=== PATIENT | male | born 1940 | race Caucasian/White ===

== ENCOUNTER 2017-12-03 19:06 | Inpatient (IN) | payer MEDICARE, MEDICAID ==
[~2017-12-03] VITALS: Ht 172.7 cm; Wt 83.0 kg
[~2017-12-03 19:06] MED LIST: AMIO200T57 PO; ASPI-1265 PO; ATEN-169 PO; DEXL60CA3 PO; DIAZ10TA PO; ENOX80SY7 SQ; FURO20TA4; HYDR-565 PO; LORA10CA9; PRED5TAB PO; PROM25TA14; SPIR25TA5; TICA90TA PO; WARF3TAB PO
[2017-12-03] MEDS ORDERED: normal saline 1000ML IV soln IV ONE (19:15)
[2017-12-03 19:33] LABS: BASOPHILS # (AUTO) 0.1 X10'3 (0-0.2); BASOPHILS % (AUTO) 1.2 % (0-1); EOSINOPHILS # (AUTO) 0.1 X10'3 (0-0.9); EOSINOPHILS % (AUTO) 0.9 % (0-6); HEMATOCRIT 39.2 % (42.0-52.0); HEMOGLOBIN 13.3 g/dl (14.0-17.9); LYMPHOCYTES # (AUTO) 1.1 X10'3 (1.1-4.8); LYMPHOCYTES % (AUTO) 12.3 % (21-51); MEAN CORPUSCULAR HEMOGLOBIN 28.7 PG (27.0-31.0); MEAN CORPUSCULAR HGB CONC 33.8 % (33.0-36.5); MEAN PLATELET VOLUME 9.3 FL (7.4-10.4); MONOCYTES # (AUTO) 0.6 X10'3 (0-0.9); MONOCYTES % (AUTO) 7.1 % (2-12); NEUTROPHILS # (AUTO) 6.9 X10'3 (1.8-7.7); NEUTROPHILS % (AUTO) 78.5 % (42-75); PLATELET COUNT 208 X10'3 (140-440); RED BLOOD COUNT 4.61 X10'6 (4.70-6.10); RED CELL DISTRIBUTION WIDTH 15.6 % (11.5-14.5); WHITE BLOOD COUNT 8.8 X10'3 (4.5-11.0)
[2017-12-03 19:46] LABS: INR 1.8 INR; PARTIAL THROMBOPLASTIN TIME 47 SECONDS (22-32); PROTHROMBIN TIME 18.4 SECONDS (9.0-12.0)
[2017-12-03 19:47] LABS: ALANINE AMINOTRANSFERASE 23 U/L (12-78); ALBUMIN 2.8 G/DL (3.4-5.0); ALBUMIN/GLOBULIN RATIO 0.6 (1.1-1.5); ALKALINE PHOSPHATASE 121 IU/L (46-116); ANION GAP 9 (8-16); ASPARTATE AMINO TRANSFERASE 55 U/L (10-37); BILIRUBIN,TOTAL 0.7 MG/DL (0.1-1.0); BLOOD UREA NITROGEN 17 MG/DL (7-18); BUN/CREATININE RATIO 10.6 (5.4-32.0); CALCIUM 9.1 MG/DL (8.5-10.1); CHLORIDE 102 MMOL/L (99-107); CREATININE 1.61 MG/DL (0.60-1.10); GLUCOSE 139 MG/DL (70-104); POTASSIUM 3.5 MMOL/L (3.5-5.1); SODIUM 138 MMOL/L (135-145); TOTAL CARBON DIOXIDE 26.9 MMOL/L (24-32); TOTAL PROTEIN 7.8 G/DL (6.4-8.2); eGFR 42 ML/MIN
[2017-12-03 20:12] LABS: CLARITY,URINE CLEAR (Clear); COLOR,URINE YELLOW (Yellow); GLUCOSE, URINE NEGATIVE (Neg); KETONES,URINE NEGATIVE (Neg); LEUKOCYTE ESTERASE ,URINE NEGATIVE (Neg); NITRITES, URINE NEGATIVE (Neg); PROTEIN,URINE 100 mg/dl (Neg); UROBILINOGEN,URINE 0.2 E.U/dL (0.2-1.0)
[2017-12-03 20:21] LABS: UA COLLECTION TYPE NON-SPECIFIED
[2017-12-03 20:25] LABS: BACTERIA,URINE FEW /HPF (Neg); MUCUS STRANDS FEW /LPF (Neg); SQUAMOUS EPITHELIAL CELL,UR FEW /LPF (FEW)
[2017-12-03 20:26] LABS: WBC,URINE 0-4 /HPF (0-4)
[2017-12-03 20:27] LABS: OCCULT BLOOD,URINE LARGE (Neg); RBC,URINE 0-2 /HPF (0-2)
[2017-12-03] MEDS ORDERED: ethyl chloride 103.5ml spray TP ONE (20:50)
[2017-12-03] MEDS ORDERED: mag hydrox/Alum hydrox/simeth 30ml oral suspension PO PRN (21:40)
[2017-12-03] MEDS ORDERED: acetaminophen 325mg tablet PO PRN (21:40)
[2017-12-03] MEDS ORDERED: CefTRIAXone/D5W-Rocephin 1gm 50 ML IV SCH (21:40)
[2017-12-03] MEDS ORDERED: HYDROmorphone 1 mg/ml syringe IV PRN (21:40)
[2017-12-03] MEDS ORDERED: magnesium hydroxide 30ml (MOM) UD suspension PO PRN (21:40)
[2017-12-03] MEDS ORDERED: DIAZEPAM PO PRN (21:50)
[2017-12-03] MEDS ORDERED: atenolol 50mg tablet PO PRN (21:50)
[2017-12-03 21:51] LABS: GLUCOSE,SYNOVIAL FLUID 114 MG/DL; TOTAL PROTEIN,SYNOVIAL FLUID 4.6 GM/DL
[2017-12-03] MEDS ORDERED: HYDROcodone/acetaminophen 10/325mg tab PO PRN (21:55)
[2017-12-03] MEDS ORDERED: diazepam 5mg tablet PO PRN (21:58)
[2017-12-03 22:07] LABS: APPEARANCE,SYNOVIAL FLUID CLOUDY; COLOR,SYNOVIAL FLUID RED; SYN RBC 121800 /CU MM (0); SYN WBC 36225 /CU MM (0-200); SYNOVIAL FLUID CRYSTALS QT NO CRYSTALS SEEN
[2017-12-03 23:00] VITALS: BP 135/71
[2017-12-03] MEDS: HYDROmorphone 1 mg/ml syringe IV PRN (23:23)
[2017-12-04 06:00] VITALS: BP 126/64
[2017-12-04 06:38] LABS: BASOPHILS % (AUTO) 0.4 % (0-1); EOSINOPHILS # (AUTO) 0.1 X10'3 (0-0.9); EOSINOPHILS % (AUTO) 1.6 % (0-6); HEMOGLOBIN 11.6 g/dl (14.0-17.9); LYMPHOCYTES # (AUTO) 1.5 X10'3 (1.1-4.8); LYMPHOCYTES % (AUTO) 18.6 % (21-51); MEAN CORPUSCULAR HGB CONC 34.2 % (33.0-36.5); MEAN CORPUSCULAR VOLUME 84.8 FL (78-98); MEAN PLATELET VOLUME 9.6 FL (7.4-10.4); MONOCYTES # (AUTO) 0.9 X10'3 (0-0.9); MONOCYTES % (AUTO) 10.7 % (2-12); NEUTROPHILS # (AUTO) 5.5 X10'3 (1.8-7.7); NEUTROPHILS % (AUTO) 68.7 % (42-75); PLATELET COUNT 178 X10'3 (140-440); RED BLOOD COUNT 4.02 X10'6 (4.70-6.10); RED CELL DISTRIBUTION WIDTH 15.9 % (11.5-14.5); WHITE BLOOD COUNT 8.1 X10'3 (4.5-11.0)
[2017-12-04 06:50] LABS: ALBUMIN 2.3 G/DL (3.4-5.0); ANION GAP 8 (8-16); BLOOD UREA NITROGEN 17 MG/DL (7-18); CALCIUM 8.8 MG/DL (8.5-10.1); CHLORIDE 106 MMOL/L (99-107); CREATININE 1.55 MG/DL (0.60-1.10); GLUCOSE 130 MG/DL (70-104); INR 1.6 INR; POTASSIUM 3.5 MMOL/L (3.5-5.1); PROTHROMBIN TIME 16.6 SECONDS (9.0-12.0); SODIUM 140 MMOL/L (135-145); eGFR 44 ML/MIN
[2017-12-04] MEDS ORDERED: HYDROcodone/acetaminophen 5mg/325mg tablet PO PRN (06:52)
[2017-12-04] MEDS ORDERED: AMIO200T57 PO (07:37)
[2017-12-04] MEDS: pantoprazole 40mg Tablet.DR PO SCH (07:42)
[2017-12-04] MEDS: HYDROmorphone 1 mg/ml syringe IV PRN ×3 (07:42→17:38)
[2017-12-04] MEDS ORDERED: SODI650T29 PO (07:59)
[2017-12-04] MEDS ORDERED: amiodarone 200mg tablet PO SCH (08:00)
[2017-12-04] MEDS ORDERED: aspirin 81mg tab.chew PO SCH (08:30)
[2017-12-04 10:00] VITALS: BP 113/56
[2017-12-04] MEDS ORDERED: vancomycin/NS 1 GM ADD-VANTAGE 250 ML IV SCH ×2 (10:00)
[2017-12-04] MEDS: ticagrelor 90mg tablet PO SCH ×2 (10:24→20:44)
[2017-12-04] MEDS: amiodarone 100mg tablet PO SCH (10:24)
[2017-12-04] MEDS ORDERED: HYDROmorphone 1 mg/ml syringe IV PRN (17:05)
[2017-12-04] MEDS: naproxen 500mg tablet PO SCH (17:30)
[2017-12-04 18:00] VITALS: BP 128/59
[2017-12-04] MEDS: lactobacillus rhamnosus 10,000 MMU CELLS/CAPSULE PO SCH (20:44)
[2017-12-04 22:00] VITALS: BP 126/64
[2017-12-04] MEDS: temazepam 15mg capsule PO PRN (23:57)
[2017-12-05] MEDS: HYDROmorphone 1 mg/ml syringe IV PRN ×5 (05:45→22:32)
[2017-12-05 06:00] VITALS: BP 125/60
[2017-12-05 06:03] LABS: BASOPHILS % (AUTO) 0.4 % (0-1); EOSINOPHILS # (AUTO) 0.2 X10'3 (0-0.9); EOSINOPHILS % (AUTO) 2.4 % (0-6); HEMATOCRIT 29.4 % (42.0-52.0); HEMOGLOBIN 9.9 g/dl (14.0-17.9); LYMPHOCYTES # (AUTO) 1.3 X10'3 (1.1-4.8); MEAN CORPUSCULAR HEMOGLOBIN 28.6 PG (27.0-31.0); MEAN CORPUSCULAR HGB CONC 33.9 % (33.0-36.5); MEAN CORPUSCULAR VOLUME 84.4 FL (78-98); MEAN PLATELET VOLUME 9.1 FL (7.4-10.4); MONOCYTES # (AUTO) 0.7 X10'3 (0-0.9); MONOCYTES % (AUTO) 10.6 % (2-12); NEUTROPHILS # (AUTO) 4.1 X10'3 (1.8-7.7); NEUTROPHILS % (AUTO) 65.6 % (42-75); PLATELET COUNT 150 X10'3 (140-440); RED BLOOD COUNT 3.48 X10'6 (4.70-6.10); RED CELL DISTRIBUTION WIDTH 15.7 % (11.5-14.5); WHITE BLOOD COUNT 6.3 X10'3 (4.5-11.0)
[2017-12-05 06:13] LABS: INR 1.3 INR
[2017-12-05 06:31] LABS: ALBUMIN 1.9 G/DL (3.4-5.0); ANION GAP 11 (8-16); BLOOD UREA NITROGEN 19 MG/DL (7-18); BUN/CREATININE RATIO 12.5 (5.4-32.0); CALCIUM 8.4 MG/DL (8.5-10.1); CHLORIDE 106 MMOL/L (99-107); CREATININE 1.52 MG/DL (0.60-1.10); GLUCOSE 132 MG/DL (70-104); POTASSIUM 3.1 MMOL/L (3.5-5.1); SODIUM 142 MMOL/L (135-145); TOTAL CARBON DIOXIDE 24.6 MMOL/L (24-32); eGFR 45 ML/MIN
[2017-12-05] MEDS: naproxen 500mg tablet PO SCH (07:46)
[2017-12-05] MEDS ORDERED: potassium Cl 20 mEq SR tablet PO PRN (07:55)
[2017-12-05] MEDS ORDERED: potassium Cl 40MEQ/NS 500ml 500 ML IV PRN ×2 (07:55)
[2017-12-05] MEDS ORDERED: CefTRIAXone 2gm/D5W 50ml 50 ML IV SCH (08:00)
[2017-12-05] MEDS: methylPREDNISolone sod succ 125mg/2ml vial IV SCH (08:09)
[2017-12-05] MEDS: ticagrelor 90mg tablet PO SCH ×2 (08:09→19:44)
[2017-12-05] MEDS: potassium Cl 20 mEq SR tablet PO PRN ×3 (08:10→16:49)
[2017-12-05] MEDS: pantoprazole 40mg Tablet.DR PO SCH (08:10)
[2017-12-05] MEDS: lactobacillus rhamnosus 10,000 MMU CELLS/CAPSULE PO SCH ×2 (08:10→19:44)
[2017-12-05] MEDS: amiodarone 100mg tablet PO SCH (08:10)
[2017-12-05] MEDS ORDERED: PRED10TA23 PO (08:34)
[2017-12-05] MEDS ORDERED: vancomycin inj 1,250 MG in normal saline 250ml IV soln 250 ML IV SCH (09:00)
[2017-12-05 10:00] VITALS: BP 143/69
[2017-12-05 18:00] VITALS: BP 141/71
[2017-12-05 22:00] VITALS: BP 128/64
[2017-12-05] MEDS: temazepam 15mg capsule PO PRN (22:32)
[2017-12-06 05:39] LABS: BASOPHILS % (AUTO) 0.1 % (0-1); EOSINOPHILS % (AUTO) 0 % (0-6); HEMATOCRIT 30.8 % (42.0-52.0); HEMOGLOBIN 10.3 g/dl (14.0-17.9); LYMPHOCYTES # (AUTO) 0.7 X10'3 (1.1-4.8); LYMPHOCYTES % (AUTO) 7.8 % (21-51); MEAN CORPUSCULAR HEMOGLOBIN 28.7 PG (27.0-31.0); MEAN CORPUSCULAR HGB CONC 33.5 % (33.0-36.5); MEAN CORPUSCULAR VOLUME 85.5 FL (78-98); MEAN PLATELET VOLUME 9.9 FL (7.4-10.4); MONOCYTES # (AUTO) 0.3 X10'3 (0-0.9); MONOCYTES % (AUTO) 3.3 % (2-12); NEUTROPHILS # (AUTO) 8.5 X10'3 (1.8-7.7); NEUTROPHILS % (AUTO) 88.8 % (42-75); PLATELET COUNT 181 X10'3 (140-440); RED BLOOD COUNT 3.61 X10'6 (4.70-6.10); RED CELL DISTRIBUTION WIDTH 15.8 % (11.5-14.5); WHITE BLOOD COUNT 9.5 X10'3 (4.5-11.0)
[2017-12-06 05:54] LABS: INR 1.1 INR; PROTHROMBIN TIME 11.4 SECONDS (9.0-12.0)
[2017-12-06] MEDS: HYDROmorphone 1 mg/ml syringe IV PRN ×4 (05:55→23:58)
[2017-12-06 06:13] LABS: ALBUMIN 1.9 G/DL (3.4-5.0); ANION GAP 12 (8-16); BLOOD UREA NITROGEN 22 MG/DL (7-18); BUN/CREATININE RATIO 16.3 (5.4-32.0); CALCIUM 8.7 MG/DL (8.5-10.1); CHLORIDE 107 MMOL/L (99-107); CREATININE 1.35 MG/DL (0.60-1.10); GLUCOSE 179 MG/DL (70-104); MAGNESIUM 2.1 MG/DL (1.5-2.4); POTASSIUM 4.4 MMOL/L (3.5-5.1); SODIUM 141 MMOL/L (135-145); TOTAL CARBON DIOXIDE 22.4 MMOL/L (24-32); eGFR 52 ML/MIN
[2017-12-06] MEDS: amiodarone 100mg tablet PO SCH (08:50)
[2017-12-06] MEDS: aspirin 81mg tablet.DR PO SCH (08:50)
[2017-12-06] MEDS: pantoprazole 40mg Tablet.DR PO SCH (08:56)
[2017-12-06] MEDS: lactobacillus rhamnosus 10,000 MMU CELLS/CAPSULE PO SCH ×2 (08:57→19:46)
[2017-12-06] MEDS: ticagrelor 90mg tablet PO SCH ×2 (08:57→19:46)
[2017-12-06] MEDS: methylPREDNISolone sod succ 125mg/2ml vial IV SCH (09:00)
[2017-12-06 10:14] VITALS: BP 135/76
[2017-12-06] MEDS: ondansetron/PF 4mg/2ml inj IV PRN (15:10)
[2017-12-06 18:00] VITALS: BP 133/65
[2017-12-06 22:00] VITALS: BP 138/76
[2017-12-07] MEDS: temazepam 15mg capsule PO PRN (00:02)
[2017-12-07] MEDS: HYDROmorphone 1 mg/ml syringe IV PRN ×3 (05:12→14:05)
[2017-12-07 05:34] LABS: BASOPHILS % (AUTO) 0.1 % (0-1); EOSINOPHILS # (AUTO) 0.2 X10'3 (0-0.9); EOSINOPHILS % (AUTO) 1.4 % (0-6); HEMOGLOBIN 10.6 g/dl (14.0-17.9); LYMPHOCYTES # (AUTO) 0.9 X10'3 (1.1-4.8); LYMPHOCYTES % (AUTO) 7.8 % (21-51); MEAN CORPUSCULAR HEMOGLOBIN 28.5 PG (27.0-31.0); MEAN CORPUSCULAR HGB CONC 33.3 % (33.0-36.5); MEAN CORPUSCULAR VOLUME 85.8 FL (78-98); MEAN PLATELET VOLUME 9.5 FL (7.4-10.4); MONOCYTES # (AUTO) 0.4 X10'3 (0-0.9); MONOCYTES % (AUTO) 3.2 % (2-12); NEUTROPHILS # (AUTO) 9.8 X10'3 (1.8-7.7); NEUTROPHILS % (AUTO) 87.5 % (42-75); PLATELET COUNT 211 X10'3 (140-440); RED BLOOD COUNT 3.73 X10'6 (4.70-6.10); RED CELL DISTRIBUTION WIDTH 15.7 % (11.5-14.5); WHITE BLOOD COUNT 11.2 X10'3 (4.5-11.0)
[2017-12-07 05:39] LABS: PROTHROMBIN TIME 10.7 SECONDS (9.0-12.0)
[2017-12-07 06:00] VITALS: BP 158/87
[2017-12-07 06:07] LABS: ALBUMIN 1.9 G/DL (3.4-5.0); ANION GAP 9 (8-16); BLOOD UREA NITROGEN 27 MG/DL (7-18); CALCIUM 8.4 MG/DL (8.5-10.1); CHLORIDE 108 MMOL/L (99-107); CREATININE 1.42 MG/DL (0.60-1.10); GLUCOSE 171 MG/DL (70-104); MAGNESIUM 2.7 MG/DL (1.5-2.4); POTASSIUM 4.7 MMOL/L (3.5-5.1); SODIUM 143 MMOL/L (135-145); TOTAL CARBON DIOXIDE 25.8 MMOL/L (24-32); eGFR 49 ML/MIN
[2017-12-07] MEDS: amiodarone 100mg tablet PO SCH (07:32)
[2017-12-07] MEDS: aspirin 81mg tablet.DR PO SCH (07:33)
[2017-12-07] MEDS: ticagrelor 90mg tablet PO SCH (07:33)
[2017-12-07] MEDS: pantoprazole 40mg Tablet.DR PO SCH (07:33)
[2017-12-07] MEDS: lactobacillus rhamnosus 10,000 MMU CELLS/CAPSULE PO SCH (07:34)
[2017-12-07] MEDS: methylPREDNISolone sod succ 125mg/2ml vial IV SCH (07:37)
[2017-12-07 10:00] VITALS: BP 152/84
[2017-12-07] MEDS: ondansetron/PF 4mg/2ml inj IV PRN (14:12)
[2017-12-08] MEDS ORDERED: VANCOMYCIN LEVEL IV ONE (08:30)
== END 2017-12-07 15:00 | disposition home or self-care (01) | DRG 554 ==
LOC: ER 19:07 → ED HOLD 21:40 → ORTHO 4S 23:01
PROVIDERS: ADMIT Hospitalist; ATTEND Internal Medicine
DX: M17.12 Unilateral primary osteoarthritis, left knee (principal); I25.10 Atherosclerotic heart disease of native coronary artery without angina pectoris; N18.3 Chronic kidney disease, stage 3 (moderate); D45 Polycythemia vera; I48.91 Unspecified atrial fibrillation; G43.909 Migraine, unspecified, not intractable, without status migrainosus; G89.29 Other chronic pain; M54.9 Dorsalgia, unspecified; I50.9 Heart failure, unspecified; J45.909 Unspecified asthma, uncomplicated; K21.9 Gastro-esophageal reflux disease without esophagitis; I25.2 Old myocardial infarction; Z95.1 Presence of aortocoronary bypass graft; Z95.5 Presence of coronary angioplasty implant and graft; Z88.2 Allergy status to sulfonamides; Z88.8 Allergy status to other drugs, medicaments and biological substances; Z88.1 Allergy status to other antibiotic agents; Z88.0 Allergy status to penicillin; Z91.013 Allergy to seafood; Z79.899 Other long term (current) drug therapy; Z79.01 Long term (current) use of anticoagulants; Z79.82 Long term (current) use of aspirin; Z86.711 Personal history of pulmonary embolism; Z87.891 Personal history of nicotine dependence; Z80.0 Family history of malignant neoplasm of digestive organs; Z82.49 Family history of ischemic heart disease and other diseases of the circulatory system; Z82.3 Family history of stroke
CPT/HCPCS: 36415; 73564; 80048; 80053; 81001; 82945; 83605; 83735; 84157; 84439; 84443; 85025; 85610; 85651; 85730; 86140; 87015; 87040; 87070; 89051; 89060; 93005; 93306; 97110; 97116; 97161; 97530; 99285; J0696; J1170; J2405; J2930; J3370; J7030

== ENCOUNTER 2018-10-17 03:19 | Emergency (ER) | payer MEDICARE, MEDICAID ==
[~2018-10-17] VITALS: Ht 172.7 cm; Wt 72.7 kg
[~2018-10-17 03:19] MED LIST changes: +AMIO200T40 PO; -AMIO200T57 PO; -ENOX80SY7 SQ; +HYDR-4353 PO; -HYDR-565 PO; -PRED5TAB PO; -WARF3TAB PO
[2018-10-17] MEDS ORDERED: acetaminophen 325mg tablet PO ONE (03:50)
[2018-10-17] MEDS ORDERED: benzonatate 100mg capsule PO ONE (03:50)
[2018-10-17] MEDS ORDERED: levoFLOXACIN 750MG TABLET PO ONE (03:50)
[2018-10-17] MEDS ORDERED: normal saline 1000ml 1,000 ML IV ONE (04:05)
[2018-10-17] MEDS ORDERED: CefTRIAXone 1000mg IM Kit (w/lidocaine diluent) IM ONE (04:05)
[2018-10-17 05:14] VITALS: BP 97/59
[2018-10-17 05:20] LABS: BASOPHILS # (AUTO) 0.1 X10'3 (0-0.2); EOSINOPHILS # (AUTO) 0.1 X10'3 (0-0.9); EOSINOPHILS % (AUTO) 2.3 % (0-6); HEMATOCRIT 36.5 % (42.0-52.0); HEMOGLOBIN 12.4 g/dl (14.0-17.9); LYMPHOCYTES # (AUTO) 1.1 X10'3 (1.1-4.8); LYMPHOCYTES % (AUTO) 19.6 % (21-51); MEAN CORPUSCULAR HEMOGLOBIN 28.8 PG (27.0-31.0); MEAN CORPUSCULAR VOLUME 84.7 FL (78-98); MEAN PLATELET VOLUME 9.2 FL (7.4-10.4); MONOCYTES # (AUTO) 0.6 X10'3 (0-0.9); MONOCYTES % (AUTO) 10.7 % (2-12); NEUTROPHILS # (AUTO) 3.6 X10'3 (1.8-7.7); NEUTROPHILS % (AUTO) 66.4 % (42-75); PLATELET COUNT 192 X10'3 (140-440); RED BLOOD COUNT 4.32 X10'6 (4.70-6.10); WHITE BLOOD COUNT 5.4 X10'3 (4.5-11.0)
[2018-10-17] MEDS ORDERED: CefTRIAXone/D5W-Rocephin 1gm 50 ML IV ONE (05:20)
[2018-10-17 05:25] LABS: ALANINE AMINOTRANSFERASE 26 U/L (12-78); ALBUMIN/GLOBULIN RATIO 0.8 (1.1-1.5); ALKALINE PHOSPHATASE 112 IU/L (46-116); ANION GAP 11 (8-16); ASPARTATE AMINO TRANSFERASE 11 U/L (10-37); BILIRUBIN,TOTAL 0.3 MG/DL (0.1-1.0); BLOOD UREA NITROGEN 26 MG/DL (7-18); BUN/CREATININE RATIO 13.2 (5.4-32.0); CALCIUM 8.3 MG/DL (8.5-10.1); CHLORIDE 106 MMOL/L (99-107); CREATININE 1.97 MG/DL (0.60-1.10); GLUCOSE 166 MG/DL (70-104); SODIUM 138 MMOL/L (135-145); TOTAL CARBON DIOXIDE 20.7 MMOL/L (24-32); TOTAL PROTEIN 6.8 G/DL (6.4-8.2); eGFR 33 ML/MIN
[2018-10-17 05:28] LABS: POTASSIUM 3.9 MMOL/L (3.5-5.1)
[2018-10-17 05:32] LABS: MAGNESIUM 2.1 MG/DL (1.5-2.4); TROPONIN I < 0.04 NG/ML (0.0-0.05)
[2018-10-17 05:51] LABS: INR 2.1 INR; PARTIAL THROMBOPLASTIN TIME 45 SECONDS (22-32)
[2018-10-17] MEDS ORDERED: LEVO500T2 PO (06:04)
[2018-10-17] MEDS ORDERED: AZIT-63 PO (07:59)
== END 2018-10-17 08:39 | disposition home or self-care (01) ==
LOC: ER 03:20
DX: J06.9 Acute upper respiratory infection, unspecified (principal); I25.10 Atherosclerotic heart disease of native coronary artery without angina pectoris; I48.91 Unspecified atrial fibrillation; I50.9 Heart failure, unspecified; I25.2 Old myocardial infarction; J45.909 Unspecified asthma, uncomplicated; K21.9 Gastro-esophageal reflux disease without esophagitis; N18.9 Chronic kidney disease, unspecified; Z86.711 Personal history of pulmonary embolism; Z95.1 Presence of aortocoronary bypass graft; Z88.0 Allergy status to penicillin; Z88.2 Allergy status to sulfonamides; Z88.1 Allergy status to other antibiotic agents; Z88.5 Allergy status to narcotic agent; Z79.82 Long term (current) use of aspirin; Z79.899 Other long term (current) drug therapy
CPT/HCPCS: 36415; 71045; 80053; 83605; 83735; 83880; 84145; 84484; 85025; 85610; 85730; 87040; 93005; 96365; 99284; J0696; J7030

== ENCOUNTER 2018-10-30 22:56 | Emergency (ER) | payer MEDICARE, MEDICAID ==
[~2018-10-30] VITALS: Ht 172.7 cm; Wt 88.4 kg
[~2018-10-30 22:56] MED LIST changes: +AZIT-63 PO
[2018-10-30 23:10] VITALS: BP 116/61
[2018-10-31] MEDS ORDERED: BENZ-16 PO (00:59)
== END 2018-10-31 01:09 | disposition home or self-care (01) ==
LOC: ER 22:56
DX: R05 Cough (principal); I48.91 Unspecified atrial fibrillation; I25.10 Atherosclerotic heart disease of native coronary artery without angina pectoris; I25.2 Old myocardial infarction; J45.909 Unspecified asthma, uncomplicated; K21.9 Gastro-esophageal reflux disease without esophagitis; N18.9 Chronic kidney disease, unspecified; I50.9 Heart failure, unspecified; Z87.891 Personal history of nicotine dependence; Z95.1 Presence of aortocoronary bypass graft; Z86.711 Personal history of pulmonary embolism; Z88.1 Allergy status to other antibiotic agents; Z88.0 Allergy status to penicillin; Z88.2 Allergy status to sulfonamides; Z88.8 Allergy status to other drugs, medicaments and biological substances; Z79.82 Long term (current) use of aspirin; Z79.899 Other long term (current) drug therapy; Z91.041 Radiographic dye allergy status; Z91.013 Allergy to seafood
CPT/HCPCS: 71045; 99283

== ENCOUNTER 2019-08-04 12:36 | Emergency (ER) | payer MEDICARE, MEDICAID ==
[~2019-08-04] VITALS: Ht 170.2 cm; Wt 73.2 kg
[~2019-08-04 12:36] MED LIST changes: -AMIO200T40 PO; +AMIO200T61 PO; -AZIT-63 PO; -FURO20TA4; +FURO20TA4 PO
[2019-08-04 13:05] VITALS: BP 158/74
[2019-08-04 14:07] LABS: BASOPHILS # (AUTO) 0.1 X10'3 (0-0.2); EOSINOPHILS # (AUTO) 0.1 X10'3 (0-0.9); EOSINOPHILS % (AUTO) 1.5 % (0-6); HEMATOCRIT 45.3 % (42.0-52.0); HEMOGLOBIN 14.9 g/dl (14.0-17.9); LYMPHOCYTES # (AUTO) 1.6 X10'3 (1.1-4.8); LYMPHOCYTES % (AUTO) 24.2 % (21-51); MEAN CORPUSCULAR HEMOGLOBIN 28.5 PG (27.0-31.0); MEAN CORPUSCULAR HGB CONC 32.9 g/dL (33.0-36.5); MEAN CORPUSCULAR VOLUME 86.7 FL (78-98); MEAN PLATELET VOLUME 9.4 FL (7.4-10.4); MONOCYTES # (AUTO) 0.9 X10'3 (0-0.9); MONOCYTES % (AUTO) 13.2 % (2-12); NEUTROPHILS % (AUTO) 60.1 % (42-75); PLATELET COUNT 215 X10'3 (140-440); RED BLOOD COUNT 5.22 X10'6 (4.70-6.10); RED CELL DISTRIBUTION WIDTH 16.2 % (11.5-14.5); WHITE BLOOD COUNT 6.7 X10'3 (4.5-11.0)
[2019-08-04 14:16] LABS: PARTIAL THROMBOPLASTIN TIME 45 SECONDS (22-32)
[2019-08-04 14:17] LABS: ALANINE AMINOTRANSFERASE 32 U/L (12-78); ALBUMIN 3.5 G/DL (3.4-5.0); ALBUMIN/GLOBULIN RATIO 0.8 (1.1-1.5); ALKALINE PHOSPHATASE 143 IU/L (46-116); ANION GAP 11 (8-16); ASPARTATE AMINO TRANSFERASE 61 U/L (10-37); BILIRUBIN,TOTAL 0.3 MG/DL (0.1-1.0); BLOOD UREA NITROGEN 27 MG/DL (7-18); BUN/CREATININE RATIO 17.1 (5.4-32.0); CALCIUM 8.9 MG/DL (8.5-10.1); CHLORIDE 107 MMOL/L (99-107); CREATININE 1.58 MG/DL (0.60-1.10); GLUCOSE 107 MG/DL (70-104); POTASSIUM 4.3 MMOL/L (3.5-5.1); SODIUM 144 MMOL/L (135-145); TOTAL CARBON DIOXIDE 26.1 MMOL/L (24-32); TOTAL PROTEIN 7.8 G/DL (6.4-8.2); eGFR 43 ML/MIN
[2019-08-04] MEDS ORDERED: ketorolac tromethamine 15mg/ml inj. IM ONE (16:00)
[2019-08-05] MEDS ORDERED: PANT-47 PO (18:32)
[2019-08-05] MEDS ORDERED: WARF2.5T PO (18:33)
[2019-08-07] MEDS ORDERED: ALBU8.5H8 INH (13:06)
[2019-08-07] MEDS ORDERED: CEFD300C3 PO (13:06)
[2019-08-07] MEDS ORDERED: ATEN-168 PO (13:06)
[2019-08-07] MEDS ORDERED: NITR0.4T51 SL (13:06)
[2019-08-07] MEDS ORDERED: AZIT500T9 PO (13:06)
== END 2019-08-04 16:26 | disposition home or self-care (01) ==
LOC: ER 12:37
DX: R09.1 Pleurisy (principal); R07.81 Pleurodynia; I25.10 Atherosclerotic heart disease of native coronary artery without angina pectoris; I50.9 Heart failure, unspecified; I25.2 Old myocardial infarction; J45.909 Unspecified asthma, uncomplicated; K21.9 Gastro-esophageal reflux disease without esophagitis; N18.9 Chronic kidney disease, unspecified; Z86.711 Personal history of pulmonary embolism; Z95.1 Presence of aortocoronary bypass graft; Z88.0 Allergy status to penicillin; Z88.2 Allergy status to sulfonamides; Z88.1 Allergy status to other antibiotic agents; Z88.5 Allergy status to narcotic agent; Z88.8 Allergy status to other drugs, medicaments and biological substances; Z79.82 Long term (current) use of aspirin; Z79.899 Other long term (current) drug therapy
CPT/HCPCS: 36415; 71045; 80053; 85025; 85610; 85730; 96372; 99284; J1885

== ENCOUNTER 2020-02-27 13:10 | Emergency (ER) | payer MEDICARE, MEDICAID ==
[~2020-02-27 13:10] MED LIST changes: +ALBU8.5H8 INH; -ASPI-1265 PO; +ATEN-168 PO; -ATEN-169 PO; -DEXL60CA3 PO; +NITR0.4T51 SL; +PANT-47 PO; -PROM25TA14; +WARF2.5T2 PO
--- NOTE | 2020-02-27 13:28 | NUR ---
1315 NOT IN LOBBY AND 1328/ NOT IN LOBBY
--- NOTE | 2020-02-27 13:40 | NUR ---
NOT IN LOBBY
--- NOTE | 2020-02-27 13:52 | NUR ---
Patient not in lobby for the third call. Patient left prior to triage. Called patient with no answer and left a voicemail.
== END 2020-02-27 13:53 | disposition left against medical advice (07) ==
LOC: ER 13:12
DX: M54.2 Cervicalgia (principal); Z53.21 Procedure and treatment not carried out due to patient leaving prior to being seen by health care provider

== ENCOUNTER 2020-11-18 17:08 | Emergency (ER) | payer MEDICARE, MEDICAID ==
[~2020-11-18 17:08] MED LIST changes: -ALBU8.5H8 INH; +ALLO100T56 PO; +AMIO100T4 PO; -AMIO200T61 PO; +ASCO-139 PO; -ATEN-168 PO; +ATEN25TA2 PO; -DIAZ10TA PO; +DIAZ5TAB4 PO; +FURO-149 PO; -FURO20TA4 PO; -LORA10CA9; +LORA10TA7 PO; -NITR0.4T51 SL; +POTA8TAB58 PO; +ROBDML PO; -SPIR25TA5; -TICA90TA PO; +TICA90TA2 PO; +ZAR5T PO
--- NOTE | 2020-11-18 18:19 | NUR ---
NIL 1740, 1800,1812
== END 2020-11-18 18:29 | disposition left against medical advice (07) ==
LOC: ER 17:09
DX: Z53.21 Procedure and treatment not carried out due to patient leaving prior to being seen by health care provider (principal)

== ENCOUNTER 2020-11-29 04:17 | Emergency (ER) | payer MEDICARE, MEDICAID ==
[~2020-11-29] VITALS: Ht 172.7 cm; Wt 94.4 kg
[2020-11-29] MEDS ORDERED: oxyCODONE/APAP 10/325mg tablet PO ONE (07:45)
--- NOTE | 2020-11-29 08:00 | NUR ---
Patient asked if he had a ride home. He stated that Maggy would be picking him up and taking him to breakfast. Patient educated on side effects of narcotics and educated on dangers of driving while taking medications.
[2020-11-29 08:05] VITALS: BP 150/75
--- NOTE | 2020-11-29 08:21 | NUR ---
After administration of percocet patient was instructed to call his ride and told he was ready for discharge. He then argued that he was never told he couldn't drive and stated he never planned to call Maggy for a ride. Patient again educated on safety and side effects of taking percocet. Patient verbalized understanding and stated "sign me out of here."
[2020-11-29] MEDS ORDERED: OXYC-150 PO (20:15)
== END 2020-11-29 08:23 | disposition home or self-care (01) ==
LOC: ER 04:18
DX: S80.211A Abrasion, right knee, initial encounter (principal); M54.89 Other dorsalgia; G89.29 Other chronic pain; I48.91 Unspecified atrial fibrillation; I25.10 Atherosclerotic heart disease of native coronary artery without angina pectoris; I50.9 Heart failure, unspecified; I25.2 Old myocardial infarction; J45.909 Unspecified asthma, uncomplicated; K21.9 Gastro-esophageal reflux disease without esophagitis; N18.9 Chronic kidney disease, unspecified; Z86.711 Personal history of pulmonary embolism; Z98.890 Other specified postprocedural states; Z88.1 Allergy status to other antibiotic agents; Z88.2 Allergy status to sulfonamides; Z88.8 Allergy status to other drugs, medicaments and biological substances; Z79.899 Other long term (current) drug therapy; W19.XXXA Unspecified fall, initial encounter; Y93.89 Activity, other specified; Y92.89 Other specified places as the place of occurrence of the external cause; Y99.8 Other external cause status
CPT/HCPCS: 73030; 73080; 73090; 73110; 73502; 99284

== ENCOUNTER 2020-11-29 19:28 | Emergency (ER) | payer MEDICARE, MEDICAID ==
[~2020-11-29] VITALS: Ht 172.7 cm; Wt 90.0 kg
[2020-11-29 19:43] VITALS: BP 115/34
[2020-11-29] MEDS ORDERED: oxyCODONE/APAP 10/325mg tablet PO ONE (20:05)
[2020-11-29] MEDS ORDERED: OXYC-150 PO (20:15)
== END 2020-11-29 20:10 | disposition home or self-care (01) ==
LOC: ER 19:29
DX: S40.021A Contusion of right upper arm, initial encounter (principal); S80.211A Abrasion, right knee, initial encounter; I48.91 Unspecified atrial fibrillation; M79.601 Pain in right arm; I25.10 Atherosclerotic heart disease of native coronary artery without angina pectoris; I50.9 Heart failure, unspecified; I25.2 Old myocardial infarction; J45.909 Unspecified asthma, uncomplicated; K21.9 Gastro-esophageal reflux disease without esophagitis; Z86.711 Personal history of pulmonary embolism; Z98.890 Other specified postprocedural states; Z88.0 Allergy status to penicillin; Z88.2 Allergy status to sulfonamides; Z88.1 Allergy status to other antibiotic agents; Z88.8 Allergy status to other drugs, medicaments and biological substances; Z88.5 Allergy status to narcotic agent; Z79.899 Other long term (current) drug therapy; W19.XXXA Unspecified fall, initial encounter; Y93.89 Activity, other specified; Y92.89 Other specified places as the place of occurrence of the external cause; Y99.8 Other external cause status
CPT/HCPCS: 99284

== ENCOUNTER 2021-03-06 11:43 | Emergency (ER) | payer MEDICARE, MEDICAID ==
[~2021-03-06] VITALS: Ht 172.7 cm; Wt 98.2 kg
[~2021-03-06 11:43] MED LIST changes: +OXYC-150 PO
[2021-03-06 11:56] VITALS: BP 132/69
[2021-03-06 12:44] LABS: BASOPHILS # (AUTO) 0.1 X10'3 (0-0.2); EOSINOPHILS # (AUTO) 0.2 X10'3 (0-0.9); EOSINOPHILS % (AUTO) 2.5 % (0-6); HEMATOCRIT 40.5 % (42.0-52.0); HEMOGLOBIN 13.2 g/dl (14.0-17.9); LYMPHOCYTES # (AUTO) 1.3 X10'3 (1.1-4.8); LYMPHOCYTES % (AUTO) 19.5 % (21-51); MEAN CORPUSCULAR HEMOGLOBIN 29.3 PG (27.0-31.0); MEAN CORPUSCULAR HGB CONC 32.7 g/dL (33.0-36.5); MEAN CORPUSCULAR VOLUME 89.7 FL (78-98); MEAN PLATELET VOLUME 9.5 FL (7.4-10.4); MONOCYTES # (AUTO) 0.7 X10'3 (0-0.9); MONOCYTES % (AUTO) 9.8 % (2-12); NEUTROPHILS # (AUTO) 4.5 X10'3 (1.8-7.7); NEUTROPHILS % (AUTO) 67.2 % (42-75); PLATELET COUNT 171 X10'3 (140-440); RED BLOOD COUNT 4.51 X10'6 (4.70-6.10); RED CELL DISTRIBUTION WIDTH 19.2 % (11.5-14.5); WHITE BLOOD COUNT 6.7 X10'3 (4.5-11.0)
[2021-03-06 13:00] LABS: ALANINE AMINOTRANSFERASE 49 U/L (12-78); ALBUMIN 3.3 G/DL (3.4-5.0); ALBUMIN/GLOBULIN RATIO 0.8 (1.1-1.5); ALKALINE PHOSPHATASE 155 IU/L (46-116); ANION GAP 12 (8-16); ASPARTATE AMINO TRANSFERASE 37 U/L (10-37); BILIRUBIN,TOTAL 0.5 MG/DL (0.1-1.0); BLOOD UREA NITROGEN 29 MG/DL (7-18); BUN/CREATININE RATIO 16.3 (5.4-32.0); CALCIUM 8.5 MG/DL (8.5-10.1); CHLORIDE 109 MMOL/L (99-107); CREATININE 1.78 MG/DL (0.60-1.10); GLUCOSE 114 MG/DL (70-104); POTASSIUM 4.2 MMOL/L (3.5-5.1); SODIUM 144 MMOL/L (135-145); TOTAL CARBON DIOXIDE 23.5 MMOL/L (24-32); TOTAL PROTEIN 7.2 G/DL (6.4-8.2); eGFR 37 ML/MIN
[2021-03-06 13:16] LABS: ANISOCYTOSIS 2+; PLATELET ESTIMATE NORMAL
[2021-03-06 13:17] LABS: LARGE PLATELETS FEW; MICROCYTOSIS 1+; SCHISTOCYTES 1+
[2021-03-06 13:18] LABS: STOMATOCYTES 1+
== END 2021-03-06 16:03 | disposition home or self-care (01) ==
LOC: ER 11:43
DX: R06.02 Shortness of breath (principal); Z20.822 Contact with and (suspected) exposure to COVID-19; R53.83 Other fatigue; R07.89 Other chest pain; J45.909 Unspecified asthma, uncomplicated; R53.1 Weakness; I48.91 Unspecified atrial fibrillation; I25.10 Atherosclerotic heart disease of native coronary artery without angina pectoris; I50.9 Heart failure, unspecified; N18.9 Chronic kidney disease, unspecified; I25.2 Old myocardial infarction; K21.9 Gastro-esophageal reflux disease without esophagitis; Z86.711 Personal history of pulmonary embolism; Z98.890 Other specified postprocedural states; Z88.1 Allergy status to other antibiotic agents; Z88.2 Allergy status to sulfonamides; Z88.8 Allergy status to other drugs, medicaments and biological substances; Z79.899 Other long term (current) drug therapy
CPT/HCPCS: 36415; 71045; 80053; 83880; 84484; 85008; 85025; 87635; 93005; 99285; C9803

== ENCOUNTER 2021-05-27 08:08 | Emergency (ER) | payer MEDICARE, MEDICAID ==
[~2021-05-27] VITALS: Ht 188 cm; Wt 92.2 kg
[~2021-05-27 08:08] MED LIST changes: -AMIO100T4 PO; +AMIO200T67 PO; -OXYC-150 PO; -ROBDML PO; +ROSU10TA28 PO; -ZAR5T PO; +calcium chloride 100 MG/1 ML inj IV ONE; +epiNEPHrine 0.1mg/ml 10ml syringe ONE; +etomidate 2mg/ml inj. ONE; +rocuronium 10mg/ml inj IV ONE; +sod chloride 0.9% 10ml flush syringe IV ONE; +sodium bicarbonate (8.4%) 1 mEq/ml syringe ONE
[2021-05-27 08:23] LABS: ABG BASE EXCESS -13.3 mmol/L (-2.0-2.0); ABG OXYGEN SATURATION 85.9 % (94-97); ABG PCO2 (T) 30.7 mmHg (35.0-48.0); ALLEN'S TEST POSITIVE; FCOHb 1.6 % (0.0-3.9); FMetHb 0.3 % (0.0-1.5); FO2Hb 84.3 % (94-97); PATIENT TEMPERATURE 36.6; TOTAL HEMOGLOBIN 11.3 G/dl (14.0-18.0)
[2021-05-27 08:52] LABS: BASOPHILS % (AUTO) 0.4 % (0-1); EOSINOPHILS % (AUTO) 0.1 % (0-6); LYMPHOCYTES # (AUTO) 1.4 X10'3 (1.1-4.8); LYMPHOCYTES % (AUTO) 17.7 % (21-51); MEAN PLATELET VOLUME 8.9 FL (7.4-10.4); MONOCYTES # (AUTO) 0.4 X10'3 (0-0.9); MONOCYTES % (AUTO) 5.3 % (2-12); NEUTROPHILS # (AUTO) 6.1 X10'3 (1.8-7.7); NEUTROPHILS % (AUTO) 76.5 % (42-75); PLATELET COUNT 112 X10'3 (140-440); WHITE BLOOD COUNT 7.9 X10'3 (4.5-11.0)
[2021-05-27 09:00] LABS: CLARITY,URINE CLOUDY (Clear); COLOR,URINE YELLOW (Yellow); GLUCOSE, URINE 500 mg/dl (Neg); KETONES,URINE TRACE mg/dl (Neg); LEUKOCYTE ESTERASE ,URINE NEGATIVE (Neg); NITRITES, URINE NEGATIVE (Neg); OCCULT BLOOD,URINE MODERATE (Neg); PH,URINE 5.5 (4.8-8.0); PROTEIN,URINE 100 mg/dl (Neg); UROBILINOGEN,URINE 0.2 E.U/dL (0.2-1.0)
--- NOTE | 2021-05-27 09:05 | NUR ---
RT AT BEDSIDE.
[2021-05-27 09:13] LABS: ABG BASE EXCESS -11.8 mmol/L (-2.0-2.0); ABG HCO3 13.3 mmol/L (22.0-26.0); ABG OXYGEN SATURATION 87.3 % (94-97); ABG PO2 (T) 64.4 mmHg (75.0-100.0); ALLEN'S TEST POSITIVE; FCOHb 1.1 % (0.0-3.9); FMetHb 0.3 % (0.0-1.5); FO2Hb 86.1 % (94-97); TOTAL HEMOGLOBIN 10.9 G/dl (14.0-18.0)
--- NOTE | 2021-05-27 09:22 | NUR ---
[address] G[address]EN BY [address] PICKERING IVP FOR HR 41 POST INTUBATION. RT AT BEDSIDE TO ASSIST WITH ETT.
[2021-05-27 09:28] LABS: HEMATOCRIT 32.5 % (42.0-52.0); HEMOGLOBIN 10.6 g/dl (14.0-17.9); MEAN CORPUSCULAR HEMOGLOBIN 30.3 PG (27.0-31.0); MEAN CORPUSCULAR HGB CONC 32.7 g/dL (33.0-36.5); MEAN CORPUSCULAR VOLUME 92.6 FL (78-98); RED BLOOD COUNT 3.51 X10'6 (4.70-6.10)
--- NOTE | 2021-05-27 09:29 | NUR ---
923 CPR STARTED AFTER NO PALPABLE PULSE, 1 EPI GIVEN IVP. 926 PULSE CHECK WITH WEAK PULSE, CPR RESUMED. 927 1 EPI GIVEN IVP. 928 PULSE CHECK HR 133 ST, BP 196/173.
[2021-05-27 09:35] LABS: UA COLLECTION TYPE FOLEY CATH
[2021-05-27] MEDS ORDERED: FENTANYL-0.9 % NACL/PF 100 ML IV PRN (09:35)
[2021-05-27] MEDS ORDERED: midazolam 1 mg/ML 2ml injection IV ONE (09:35)
[2021-05-27] MEDS ORDERED: midazolam 100mg in NS 100ml 100 ML IV PRN (09:35)
[2021-05-27] MEDS ORDERED: fentaNYL/PF 50MCG/1 ML 2ML syringe IV PRN (09:35)
[2021-05-27 09:36] LABS: WBC,URINE 0-4 /HPF (0-4)
[2021-05-27 09:37] VITALS: BP 164/109
[2021-05-27 09:37] LABS: BACTERIA,URINE FEW /HPF (Neg); MUCUS STRANDS NONE SEEN /LPF (Neg); SQUAMOUS EPITHELIAL CELL,UR FEW /LPF (FEW)
[2021-05-27 09:38] LABS: CELLULAR CAST 0-4 /LPF (NEGATIVE); COARSE GRANULAR CAST 0-3 /LPF (NEGATIVE)
[2021-05-27 09:40] LABS: NUCLEATED RED BLOOD CELLS 3 /100WBC (0-0); TOTAL CELLS COUNTED 100
[2021-05-27 09:41] LABS: ANISOCYTOSIS 2+; PLATELET ESTIMATE DECREASED; POLYCHROMASIA 1+
[2021-05-27 09:42] LABS: ELLIPTOCYTES FEW; SCHISTOCYTES FEW; TEAR DROP CELLS 1+; TOXIC GRANULATION 1+
--- NOTE | 2021-05-27 09:56 | NUR ---
0940 CPR STARTED FOR NO RHYTHM ON MONITOR/NO PULSE AFTER CHEST XRAY. 0942 1 EPI GIVEN IVP, 1 AMP BICARB IVP. 0944 PULSE CHECK WITH NO PULSE, CPR RESUMED. 46 1 EPI GIVEN, PULSE CHECK ASYSTOLE ON MONITOR WITH NO PULSE. 48 PULSE CHECK ASYSTOLE ON MONITOR WITH NO PULSE. 49 1 AMP CALCIUM AND 1 EPI GIVEN IVP PER DR PICKERING. 50 PULSE CHECK ASYSTOLE ON MONITOR WITH NO PALPABLE PULSE. 51 1 AMP BICARB GIVEN IVP. 53 1 EPIR GIVEN IVP. 54 PULSE CHECK ASYSTOLE ON MONITOR WITH NO PALPABLE PULSE. 56 PULSE CHECK ASYSTOLE WITH NO PALPABLE PULSE, ULTRASOUND INDICATED NO CARDIAC WALL MOVEMENT PER DR PICKERING. TIME OF 955.
--- NOTE | 2021-05-27 10:47 | NUR ---
JOSUE ([facility]) [phone].
--- NOTE | 2021-05-27 11:36 | NUR ---
SON JOSUE LOPEZ [phone]. DENTURES REMAINED WITH PATIENT PER SON.
[2021-05-28] MEDS ORDERED: mineral oil/petrolatum ophthal oint EACHEYE SCH (14:00)
== END 2021-05-27 13:48 ==
LOC: ER 08:08
DX: J96.01 Acute respiratory failure with hypoxia (principal); I46.9 Cardiac arrest, cause unspecified; I48.91 Unspecified atrial fibrillation; I25.10 Atherosclerotic heart disease of native coronary artery without angina pectoris; I50.9 Heart failure, unspecified; I25.2 Old myocardial infarction; J45.909 Unspecified asthma, uncomplicated; K21.9 Gastro-esophageal reflux disease without esophagitis; N18.9 Chronic kidney disease, unspecified; Z87.01 Personal history of pneumonia (recurrent); Z95.5 Presence of coronary angioplasty implant and graft; Z79.01 Long term (current) use of anticoagulants; Z79.899 Other long term (current) drug therapy; Z88.0 Allergy status to penicillin; Z88.1 Allergy status to other antibiotic agents; Z88.2 Allergy status to sulfonamides; Z91.013 Allergy to seafood; Z88.5 Allergy status to narcotic agent; Z88.8 Allergy status to other drugs, medicaments and biological substances
CPT/HCPCS: 36415; 36600; 71045; 81001; 82803; 85007; 85018; 85025; 93005; 94799; 96374; 99285; J0171; J2250; J3490; 94002; 94660; 94760